=== PATIENT | male | born 1975 | race Caucasian/White ===

== ENCOUNTER 2018-03-17 21:56 | Emergency (ER) | payer OTHER | END 2018-03-17 23:58 | disposition home or self-care (01) | LOC: FTE 21:56 | DX: J02.9 Acute pharyngitis, unspecified (principal); M54.9 Dorsalgia, unspecified | CPT/HCPCS: 99283; Z7502 ==

== ENCOUNTER 2018-05-10 17:48 | Emergency (ER) | payer OTHER | END 2018-05-10 19:02 | disposition home or self-care (01) | LOC: FTE 17:48 | DX: M54.5 Low back pain (principal) | CPT/HCPCS: 99283; Z7502 ==

== ENCOUNTER 2018-08-07 14:11 | Emergency (ER) | payer OTHER | END 2018-08-07 18:57 | disposition home or self-care (01) | LOC: FTE 14:11 | DX: B00.89 Other herpesviral infection (principal) | CPT/HCPCS: 99283; Z7502 ==

== ENCOUNTER 2018-09-11 15:45 | Emergency (ER) | payer OTHER ==
[2018-09-11] MEDS: KETOROLAC 30 MG INJ IM (18:42)
== END 2018-09-11 19:32 | disposition home or self-care (01) ==
LOC: FTE 15:45
DX: L03.012 Cellulitis of left finger (principal)
CPT/HCPCS: 96372; 99284-25

== ENCOUNTER 2019-01-21 06:46 | Emergency (ER) | payer OTHER ==
[2019-01-21 07:12] LABS: URINE BLOOD (Dip) POC Negative (NEGATIVE); URINE GLUCOSE (Dip) POC Negative (NEGATIVE); URINE KETONES (Dip) POC Negative (NEGATIVE); URINE LEUKOCYTE EST (Dip) POC Negative (NEGATIVE); URINE NITRITE (Dip) POC Negative (NEGATIVE); URINE TOTAL PROTEIN POC Negative (NEGATIVE)
[2019-01-21] MEDS: FAMOTIDINE 20 MG TAB PO (07:23)
[2019-01-21] MEDS: LIDOCAINE/MYLANTA 40 ML BTL PO (07:23)
== END 2019-01-21 07:49 | disposition home or self-care (01) ==
LOC: E/R 06:46
DX: R10.13 Epigastric pain (principal)
CPT/HCPCS: 81003; 99282